=== PATIENT | female | born 1965 | race Caucasian/White ===

== ENCOUNTER 2023-03-13 07:56 | Day surgery (SDC) | payer BC ==
[~2023-03-13 07:56] MED LIST: Metoclopramide 10 MG/2 ML SDV IV PRN; Sodium Chloride 0.9% 1,000 ML IV SCH
[2023-03-13] MEDS ORDERED: Propofol 200 MG/20 ML SDV ONE (09:30)
[2023-03-13] MEDS ORDERED: Glycopyrrolate 0.2 MG/ML 2 ML SDV ONE (09:30)
== END 2023-03-13 10:48 | disposition home or self-care (01) ==
LOC: LB.SDS 07:56
PROVIDERS: ATTEND Surgery
DX: Z12.11 Encounter for screening for malignant neoplasm of colon (principal); K57.30 Diverticulosis of large intestine without perforation or abscess without bleeding; K63.5 Polyp of colon; I10 Essential (primary) hypertension; Z88.5 Allergy status to narcotic agent; Z88.1 Allergy status to other antibiotic agents
CPT/HCPCS: 88305; J2704; J3490; J7030

== ENCOUNTER 2023-06-06 10:58 | Day surgery (SDC) | payer BC ==
[2023-06-06] MEDS: Sodium Chloride 0.9% 1,000 ML IV SCH (12:08)
[2023-06-06] MEDS ORDERED: Propofol 200 MG/20 ML SDV ONE (13:20)
== END 2023-06-06 14:30 | disposition home or self-care (01) ==
LOC: LB.SDS 10:58
PROVIDERS: ATTEND Surgery
DX: D64.9 Anemia, unspecified (principal); I10 Essential (primary) hypertension; E03.9 Hypothyroidism, unspecified; F32.9 Major depressive disorder, single episode, unspecified; Z98.84 Bariatric surgery status; Z98.0 Intestinal bypass and anastomosis status; Z79.890 Hormone replacement therapy; Z79.899 Other long term (current) drug therapy; Z88.5 Allergy status to narcotic agent; Z88.1 Allergy status to other antibiotic agents
CPT/HCPCS: J2704; J7030